=== PATIENT | male | born 1990 | race African-American/Black ===

== ENCOUNTER 2016-05-24 21:05 | Emergency (ER) | payer OTHER ==
[~2016-05-24] VITALS: Ht 193 cm; Wt 112.3 kg
[2016-05-24] MEDS ORDERED: KETOROLAC TROMETHAMINE 60 MG/2 ML VIAL IM ONE (22:00)
[2016-05-24] MEDS ORDERED: HYDROCODONE/ACETAMINOPHEN 10-325 MG TABLET PO ONE (22:00)
[2016-05-24 22:14] VITALS: BP 135/42
== END 2016-05-24 22:49 | disposition home or self-care (01) ==
LOC: EMS 21:08
DX: S82.891A Other fracture of right lower leg, initial encounter for closed fracture (principal); X58.XXXA Exposure to other specified factors, initial encounter; Y93.67 Activity, basketball; Y92.89 Other specified places as the place of occurrence of the external cause; Y99.8 Other external cause status
CPT/HCPCS: 29515; 73610; 96372; 99284; J1885

== ENCOUNTER 2021-11-10 14:07 | Emergency (ER) | payer OTHER ==
[~2021-11-10] VITALS: Ht 193 cm; Wt 120.5 kg
[2021-11-10 14:21] VITALS: BP 131/61
== END 2021-11-10 15:04 | disposition home or self-care (01) ==
LOC: EMS 14:34
DX: S63.601A Unspecified sprain of right thumb, initial encounter (principal); F12.90 Cannabis use, unspecified, uncomplicated; W23.0XXA Caught, crushed, jammed, or pinched between moving objects, initial encounter; Y93.67 Activity, basketball; Y92.89 Other specified places as the place of occurrence of the external cause; Y99.8 Other external cause status
CPT/HCPCS: 99283